=== PATIENT | female | born 1985 | race African-American/Black ===

== ENCOUNTER 2016-09-20 14:38 | Emergency (ER) | payer MEDICAID ==
[2016-09-20 15:58] LABS: BASOPHIL % 0.4 % (0-2); PLATELET COUNT 250 x10^3mcL (130-400)
[2016-09-20 16:05] LABS: RED CELL DISTRIBUTION WIDTH 17.5 % (11.5-14.5)
[2016-09-20 16:07] LABS: CARBON DIOXIDE 26.8 mmol/L (21-32); CHLORIDE SERUM 105 mmol/L (98-107); CREATININE SERUM 0.8 mg/dL (0.6-1.0); GFR1 > 60 mL/min; GLUCOSE SERUM 85 mg/dL (74-106); POTASSIUM SERUM 4.2 mmol/L (3.5-5.1); SODIUM SERUM 139 mmol/L (136-145)
[2016-09-20 16:11] LABS: ALBUMIN 3.5 g/dL (3.4-5.0); ALKALINE PHOSPHATASE 52 U/L (46-116); ALT/SGPT 21 U/L (14-59); AST/SGOT 17 U/L (15-37); BILIRUBIN TOTAL 0.42 mg/dL (0.20-1.00); LIPASE 102 IU/L (73-393); TOTAL PROTEIN, SERUM 7.4 g/dL (6.4-8.2)
[2016-09-20 16:49] VITALS: BP 121/76
== END 2016-09-20 16:49 | disposition home or self-care (01) ==
LOC: ED 14:38
PROVIDERS: Emergency Medicine
DX: R10.13 Epigastric pain (principal); Z88.1 Allergy status to other antibiotic agents
CPT/HCPCS: Q0162